=== PATIENT | female | born 1955 | race Caucasian/White ===

== ENCOUNTER 2018-07-11 08:30 | Day surgery (SDC) | payer BC ==
[~2018-07-11] VITALS: Ht 157.5 cm; Wt 79.4 kg
[2018-07-11] MEDS ORDERED: DICLOFENAC SODI75 MG PO (11:51)
[2018-07-11] MEDS ORDERED: SENNA LAX8.6 MG PO (11:52)
--- NOTE | 2018-07-11 12:12 | NUR ---
07/11/18 1212 Kareen Donahue 1152 PT ARRIVED IN PACU SLEEPY WITH NO C/O'S. 1205 C/O L KNEE PAIN 02/05. FENTANYL 25MCG GIVEN IVP. 1209 NO CHANGE IN PAIN LEVEL. FENTANYL 25MCG GIVEN IVP. ICE TO L KNEE AND ELEVATED. PT STATES "THAT'S HELPING ALITTLE." 1212 OXYGEN REMOVED. SATS 100% ON RA.
--- NOTE | 2018-07-11 14:23 | NUR ---
1230 PT RETURNED FROM PACU, AWAKE. DESCRIBES HER PAIN " BEING THERE, BUT NOT HORRIBLE." DECLINED NEED FOR MEDICATION. VITALS STABLE. CRACKERS, PUDDING AND WATER GIVEN. DISCUSSED DISCHARGE CRITERIA. NO FURTHER NEEDS AT THIS TIME. CALL LIGHT IN REACH. IN ROOM.
--- NOTE | 2018-07-11 14:26 | NUR ---
1350 IN TO CHECK ON PT. PT DOING WELL. ASSISTED UP TO BATHROOM, TOLERATED WELL. IV DC'D. PT DRESSED WITH HELP OF . PT DENIES PAIN AND NAUSEA. PT READY TO DC. DS AND DR. LUQUE INSTRUCTIONS REVIEWED WITH PT. PT WHEELED OUT TO WAITING CAR.
--- NOTE | 2018-07-11 14:26 | NUR ---
1315 IN TO CHECK ON PT. TOLERATING PO WELL. WATER REFILLED. PT WOULD LIKE TO REST BEFORE GETTING UP TO THE RESTROOM. CALL LIGHT IN REACH.
--- NOTE | 2018-07-12 07:41 | OR ---
[facility] [address], [place] [address] Signed DATE OF OPERATION: 07/11/2018 SURGEON: Lee Laguerre MD PREOPERATIVE DIAGNOSIS: Medial meniscus tear, left knee. POSTOPERATIVE DIAGNOSIS: Medial meniscus tear, left knee. PROCEDURE PERFORMED: Left knee arthroscopy with partial medial meniscectomy. KAIWHAKAHAERE: Ana Hawthorne PA-C. Ana was present in critical positioning, camera holding, and wound closure. ANESTHESIA: General. BLOOD LOSS: Minimal. BRIEF HISTORY: Thania is a 62-year-old female with pain and locking in her knee. She had meniscus tear on either side and this felt to be a little bit different. However, MRI did confirm a large posterior medial meniscus tear. Risks and benefits of operative treatment were discussed with her and she elected to proceed. Once consent was obtained, she was taken to the operating room. After adequate anesthesia, she was placed on operating table. The right leg was flexed, abducted, and externally rotated on a well-padded leg de la cruz. The left was placed in well-padded proximal thigh tourniquet and placed in leg de la cruz. Portal sites were pre-injected using 0.25% Marcaine with epinephrine and an alcohol prep. The leg was then prepped and draped in a standard sterile fashion and the standard inferolateral and superolateral portals were made. The scope was introduced. 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 Trochlea was relatively intact. Medial and lateral gutters were clear. ACL and PCL were intact. Lateral compartment was intact. 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 Grade 1 changes on the tibial side. The Electronically Signed By: LEE LAGUERRE MD 07/12/18 0741 PATIENT NAME: THANIA TAVERA OPERATIVE REPORT DATE OF : 59 REPORT #: [id number] PHYSICIAN: LEE LAGUERRE MD PCP: TYRA ONOFRE PAC REPORT IS CONFIDENTIAL AND NOT TO BE RELEASED WITHOUT AUTHORIZATION [facility] [address], [place] [address] Signed meniscus showed a complex tear starting at the posterior corner and heading almost to the root. DESCRIPTION OF OPERATION: With some difficulty, the medial portal was established. The posterior medial meniscus was debrided. The shards and debris were removed using shaver and shaver was used to trim the tear back to a stable rim. Once this was accomplished, chondral flaps on the femoral condyle were removed and any loose devitalized tissue was removed. The scope was then withdrawn. Portals closed with 3-0 nylon, dressed with Adaptic, ABD, and Mark wrap. She tolerated the procedure well. All sponge, needle, and instrument counts were correct. Lee Laguerre MD BA/MODL /[id number] Copies: ~ Electronically Signed By: LEE LAGUERRE MD 07/12/18 0741 PATIENT NAME: THANIA TAVERA OPERATIVE REPORT DATE OF : 59 REPORT #: [id number] PHYSICIAN: LEE LAGUERRE MD PCP: TYRA ONOFRE PAC REPORT IS CONFIDENTIAL AND NOT TO BE RELEASED WITHOUT AUTHORIZATION
--- NOTE | 2018-07-12 16:50 | EKG ---
[facility] [address] [facility] [place] [address] Signed Normal sinus rhythm with sinus arrhythmia Minimal voltage criteria for LVH, may be normal variant Nonspecific T wave abnormality Abnormal ECG When compared with ECG of 03-JUL-2018 10:15, Minimal criteria for Anterior infarct are no longer present No significant change was found Confirmed by FRANC VALE DO ([id number]) on 07/12/2018 4:50:36 PM Electronically Signed By: FRANC VALE DO 07/12/18 1650 PATIENT NAME: LIMA TAVERA Electrocardiogram DATE OF : 59 PHYSICIAN: FRANC VALE DO REPORT #: [id number] REPORT IS CONFIDENTIAL AND NOT TO BE RELEASED WITHOUT AUTHORIZATION
== END 2018-07-11 14:10 | disposition home or self-care (01) ==
LOC: OPS 08:30 → DS 08:30 → OPS 09:45
PROVIDERS: Specialist
PROC: 0SBD4ZZ Excision of Left Knee Joint, Percutaneous Endoscopic Approach (ICD-10-PCS; principal; 2018-07-11 12:45)
DX: S83.232A Complex tear of medial meniscus, current injury, left knee, initial encounter (principal); M22.42 Chondromalacia patellae, left knee; Z98.890 Other specified postprocedural states; W08.XXXA Fall from other furniture, initial encounter
CPT/HCPCS: 01400; 93005; 93010; J0131; J0690; J1100; J1885; J2405; J2704; J2765; J3010; J7120